=== PATIENT | female | born 1970 | race African-American/Black ===

== ENCOUNTER 2019-03-20 18:12 | Emergency (ER) | payer MEDICAID ==
[~2019-03-20] VITALS: Ht 170.2 cm; Wt 88.5 kg
[~2019-03-20 18:12] MED LIST: CYCLOBENZAPRINE10 MG ORAL; IBUPROFEN400 MG ORAL; IBUPROFEN600 MG ORAL; KEFLEX500 MG PO; PREDNISONE5 MG PO
[2019-03-20] MEDS ORDERED: NKM (18:17)
[2019-03-20] MEDS ORDERED: Aspirin Baby 81mg ORAL ONE (18:30)
[2019-03-20] MEDS ORDERED: Aspirin Baby 81mg ONE (19:01)
[2019-03-20 19:11] VITALS: BP 142/95
[2019-03-20] MEDS ORDERED: Ketorolac 60mg Inj IM ONE (19:15)
--- NOTE | 2019-03-20 19:22 | NUR ---
Patient admitted for chest pain rating it at 7/10. patient is awake and alert to name, time, place and situation, IV plced on the LEft ac with 20g.
[2019-03-20 19:28] LABS: BASOPHILS % (AUTO) 0.7 % (0.0-2.0); HEMATOCRIT 34.1 % (37.0-47.0); HEMOGLOBIN 9.7 G/DL (12.0-16.0); LYMPHOCYTES % (AUTO) 19.1 % (20.0-45.0); MEAN CORPUSCULAR VOLUME 73 FL (80-99); MONOCYTES % (AUTO) 5.9 % (1.0-10.0); NEUTROPHILS % (AUTO) 72.3 % (45.0-75.0); PLATELET COUNT 334 K/UL (150-450); RED BLOOD COUNT 4.67 M/UL (4.20-5.40); RED CELL DISTRIBUTION WIDTH 15.4 % (11.6-14.8); WHITE BLOOD COUNT 8.2 K/UL (4.8-10.8)
--- NOTE | 2019-03-20 19:33 | NUR ---
HAND-OFF: Report given to GORDO Turpin. patient remains awake and alert to name, place, time, and sitauation. reports pain of 7/10.
[2019-03-20 19:43] LABS: ANION GAP 9 mmol/L (5-15); BLOOD UREA NITROGEN 11 mg/dL (7-18); CALCIUM 9.2 MG/DL (8.5-10.1); CARBON DIOXIDE 27 MMOL/L (21-32); CHLORIDE 104 MMOL/L (98-107); CREATININE 0.7 MG/DL (0.55-1.30); POTASSIUM 3.6 MMOL/L (3.5-5.1); SODIUM 140 MMOL/L (136-145)
[2019-03-20] MEDS ORDERED: Ketorolac 30mg Inj IV ONE (20:00)
--- NOTE | 2019-03-20 20:00 | NUR ---
ED Nurse Note: Recieved report to resume care, pt in bed awake, alert and oriented x 4, pt here with c/o sudden, chest pain at 7/10, pt has patent saline lock, states has chest pain at 7/10 and asking for pain meds, pt assisted to bathroom, ambulates well with steady gait, urine sample sent to lab, pt medicated as ordered, will monitor for med effectiveness and resume care as ordered.
[2019-03-20 20:04] LABS: ALANINE AMINOTRANSFERASE 23 U/L (12-78); ALBUMIN 3.8 G/DL (3.4-5.0); ALKALINE PHOSPHATASE 67 U/L (46-116); ASPARTATE AMINO TRANSFERASE 13 U/L (15-37); BILIRUBIN,TOTAL 0.2 MG/DL (0.2-1.0); CKMB 0.6 NG/ML (0.0-3.6); CREATINE KINASE 100 U/L (26-308)
[2019-03-20 20:08] LABS: BILIRUBIN, URINE NEGATIVE (NEGATIVE); COLOR,URINE PALE YELLOW; GLUCOSE, URINE (UA) NEGATIVE (NEGATIVE); KETONES,URINE NEGATIVE (NEGATIVE); LEUKOCYTE ESTERASE ,URINE NEGATIVE (NEGATIVE); NITRITE,URINE NEGATIVE (NEGATIVE); PH,URINE 7 (4.5-8.0); PROTEIN,URINE NEGATIVE (NEGATIVE); UROBILINOGEN,URINE NORMAL MG/DL (0.0-1.0)
[2019-03-20 20:09] LABS: APPEARANCE,URINE CLEAR
[2019-03-20 20:30] VITALS: BP 134/91
--- NOTE | 2019-03-20 20:50 | Emergency Room Report ---
History of Present Illness General Chief Complaint: Chest Pain Source: Patient Present Illness HPI The patient states that she was driving and suddenly developed sharp chest pain. She states the pain is worse with movement. She states that also the pain is worse with pressure on her chest wall. She denies recent illness. She denies cough or congestion. She denies fever chills. She denies nausea or vomiting. She denies shortness of breath. She has no other complaints. Allergies: Coded Allergies: MORPHINE (Unverified Allergy, Unknown, Itching, 12/17/14) Uncoded Allergies: Tylenol with codeine (Allergy, Unknown, Itching, 12/17/14) Patient History Past Medical History: none Social History: Denies: smoking, alcohol use, drug use Reviewed Nursing Documentation: PMH: Agreed; PSxH: Agreed Nursing Documentation-PMH Past Medical History: No Stated History Review of Systems All Other Systems: negative except mentioned in HPI Physical Exam Vital Signs Date Time Temp Pulse Resp B/P (MAP) Pulse Ox O2 Delivery O2 Flow Rate FiO2 03/20/19 18:14 98.8 72 19 167/98 (121) 100 Room Air Sp02 EP Interpretation: reviewed, normal General Appearance: no apparent distress, alert, GCS 15, non-toxic Head: normocephalic, atraumatic Eyes: bilateral eye normal inspection, bilateral eye PERRL ENT: hearing grossly normal, normal pharynx, no angioedema, normal voice Neck: full range of motion, supple/symm/no masses Respiratory: lungs clear, normal breath sounds, no respiratory distress, no retraction, no accessory muscle use, speaking full sentences, other - Anterior chest wall is exquisitely TTP. Cardiovascular #1: regular rate, rhythm, no edema Gastrointestinal: normal bowel sounds, non tender, soft, non-distended, no guarding, no rebound Rectal: deferred Musculoskeletal: back normal, gait/station normal, normal range of motion, non- tender Neurologic: alert, oriented x3, responsive, motor strength/tone normal, sensory intact, speech normal Psychiatric: judgement/insight normal, memory normal, mood/affect normal, no suicidal/homicidal ideation Skin: no rash, normal color Medical Decision Making Diagnostic Impression: Primary Impression: Chest wall pain ER Course The patient is low risk chest pain. I considered PE, PTX, acute coronary syndrome, aortic dissection, pneumonia which is unlikely given hx, CE, CXR. Low risk PERC and Wells. Negative work-up to include Cardiac enzymes, CXR, EKG. Given history and PE I do not feel that this patient needs further evaluation at this time. The patient was instructed to follow-up closely with their PCP and close return precautions were given. Laboratory Tests Test 03/20/19 19:01 03/20/19 19:55 White Blood Count 8.2 K/UL (4.8-10.8) Red Blood Count 4.67 M/UL (4.20-5.40) Hemoglobin 9.7 G/DL (12.0-16.0) L Hematocrit 34.1 % (37.0-47.0) L Mean Corpuscular Volume 73 FL (80-99) L Mean Corpuscular Hemoglobin 20.9 PG (27.0-31.0) L Mean Corpuscular Hemoglobin Concent 28.6 G/DL (32.0-36.0) L Red Cell Distribution Width 15.4 % (11.6-14.8) H Platelet Count 334 K/UL (150-450) Mean Platelet Volume 8.8 FL (6.5-10.1) Neutrophils (%) (Auto) 72.3 % (45.0-75.0) Lymphocytes (%) (Auto) 19.1 % (20.0-45.0) L Monocytes (%) (Auto) 5.9 % (1.0-10.0) Eosinophils (%) (Auto) 2.0 % (0.0-3.0) Basophils (%) (Auto) 0.7 % (0.0-2.0) Sodium Level 140 MMOL/L (136-145) Potassium Level 3.6 MMOL/L (3.5-5.1) Chloride Level 104 MMOL/L (98-107) Carbon Dioxide Level 27 MMOL/L (21-32) Anion Gap 9 mmol/L (5-15) Blood Urea Nitrogen 11 mg/dL (7-18) Creatinine 0.7 MG/DL (0.55-1.30) Estimate Glomerular Filtration Rate > 60 mL/min (>60) Glucose Level 112 MG/DL (74-106) H Calcium Level 9.2 MG/DL (8.5-10.1) Total Bilirubin 0.2 MG/DL (0.2-1.0) Aspartate Amino Transferase (AST) 13 U/L (15-37) L Alanine Aminotransferase (ALT) 23 U/L (12-78) Alkaline Phosphatase 67 U/L (46-116) Total Creatine Kinase 100 U/L (26-308) Creatine Kinase MB 0.6 NG/ML (0.0-3.6) Creatine Kinase MB Relative Index 0.6 Troponin I 0.000 ng/mL (0.000-0.056) Total Protein 7.6 G/DL (6.4-8.2) Albumin 3.8 G/DL (3.4-5.0) Globulin 3.8 g/dL Albumin/Globulin Ratio 1.0 (1.0-2.7) Urine Color Pale yellow Urine Appearance Clear Urine pH 7 (4.5-8.0) Urine Specific [place] 1.010 (1.005-1.035) Urine Protein Negative (NEGATIVE) Urine Glucose (UA) Negative (NEGATIVE) Urine Ketones Negative (NEGATIVE) Urine Blood Negative (NEGATIVE) Urine Nitrite Negative (NEGATIVE) Urine Bilirubin Negative (NEGATIVE) Urine Urobilinogen Normal MG/DL (0.0-1.0) Urine Leukocyte Esterase Negative (NEGATIVE) Urine Opiates Screen Negative (NEGATIVE) Urine Barbiturates Screen Negative (NEGATIVE) Phencyclidine (PCP) Screen Negative (NEGATIVE) Urine Amphetamines Screen Negative (NEGATIVE) Urine Benzodiazepines Screen Negative (NEGATIVE) Urine Cocaine Screen Negative (NEGATIVE) Urine Marijuana (THC) Screen Negative (NEGATIVE) EKG Diagnostic Results Rate: normal Rhythm: NSR ST Segments: no acute changes Rhythm Strip Diag. Results EP Interpretation: yes Rate: 70's Rhythm: NSR, no PVC's, no ectopy Chest X-Ray Diagnostic Results Chest X-Ray Diagnostic Results : Chest X-Ray Ordered: Yes # of Views/Limited/Complete: 1 View Indication: Chest Pain EP Interpretation: Yes Interpretation: no consolidation, no effusion, no pneumothorax, no acute cardiopulmonary disease Impression: No acute disease Electronically Signed by: Mellisa Denton DO Last Vital Signs Date Time Temp Pulse Resp B/P (MAP) Pulse Ox O2 Delivery O2 Flow Rate FiO2 03/20/19 19:21 72 17 Room Air 03/20/19 19:11 98.5 142/95 100 Status: improved Disposition: HOME, SELF-CARE Condition: Improved Patient Instructions: Nonspecific Chest Pain Mellisa Denton DO Mar 20, 2019 20:50
[2019-03-20] MEDS ORDERED: CYCLOBENZAPRINE10 MG ORAL (20:56)
[2019-03-20] MEDS ORDERED: ACETAMINOPHEN-1 EAC1 ORAL (20:56)
[2019-03-20 21:00] VITALS: BP 128/84
--- NOTE | 2019-03-20 21:10 | NUR ---
ER DISCHARGE NOTE: Patient is cleared to be discharged per ERMD, pt is aox4, on room air, with stable vital signs. pt was given dc and prescription instructions, pt was able to verbalize understanding, pt id band and iv site removed without complications. pt is able to ambulate with steady gait. pt took all belongings.
[2019-03-20 21:21] VITALS: BP 128/84
--- NOTE | 2019-03-21 11:50 | Diagnostic Imaging Report ---
Indication: Dyspnea Comparison: 12/17/2014 A single view chest radiograph was obtained. Findings: Cardiomediastinal appearance is within normal limits for age. The lungs are clear. Pulmonary vascularity is appropriate. The diaphragmatic contour is smooth and costophrenic angles are sharp. No pleural effusions are identified. The bones are unremarkable. Impression: No acute findings
--- NOTE | 2019-04-02 16:03 | Cardiology Report ---
APPROVED REPORT EKG Measurement Heart [id number] Normal sinus rhythm with sinus arrhythmia Normal ECG
== END 2019-03-20 21:20 | disposition home or self-care (01) ==
LOC: EMR 20:45
DX: R07.89 Other chest pain (principal); Z88.6 Allergy status to analgesic agent
CPT/HCPCS: 36415; 71045; 80053; 80307; 81003; 82550; 82553; 84484; 85025; 93005; 96361; 96372; 96374; J1885; Z7502; 99284

== ENCOUNTER 2019-11-30 17:26 | Emergency (ER) | payer MEDICAID ==
[~2019-11-30] VITALS: Ht 170.2 cm; Wt 90.7 kg
[~2019-11-30 17:26] MED LIST changes: +ACETAMINOPHEN-1 EAC1 ORAL; +NKM
--- NOTE | 2019-11-30 17:50 | NUR ---
ED Nurse Note: Pt walked in from home c/o left lower abd tingling feeling that radiates to left lower back. Pt describes it as "needles sticking her skin." Respirations even and unlabored on room air. Vitals stable as documented.
[2019-11-30 17:51] VITALS: BP 144/81
--- NOTE | 2019-11-30 18:18 | NUR ---
ED Nurse Note: ED MD @ bedside
--- NOTE | 2019-11-30 18:22 | Emergency Room Report ---
History of Present Illness General Chief Complaint: General Complaint Source: Patient Present Illness HPI Patient presents with 3 days of left flank pain that feels like pins coming from her back and radiating to her left lower quadrant. She denies any nausea, vomiting, diarrhea, dysuria change in menstruation, fevers, chills. She has been taking Aleve. She also took Flexeril that did not seem to help. She denies any unusual workout or stretching. The pain does not radiated down her left leg. She states she has never had this type of pain before she is not noticed any rashes. No fevers, chills, sore throat, chest pain, palpitations, nausea, vomiting, diarrhea, dysuria, shortness of breath, depression, anxiety, visual changes, dizziness, headache. Allergies: Coded Allergies: MORPHINE (Unverified Allergy, Unknown, Itching, 12/17/14) Uncoded Allergies: Tylenol with codeine (Allergy, Unknown, Itching, 12/17/14) COVID-19 Screening Contact w/high risk pt: No Recent Travel to affected area: No Experienced COVID-19 symptoms?: No COVID-19 Testing performed DERRICK BOAT LEVERMAN: No Patient History Past Medical History: see triage record Past Surgical History: Social History: Denies: smoking Social History Narrative From home Now: No Reviewed Nursing Documentation: PMH: Agreed; PSxH: Agreed Nursing Documentation-PMH Past Medical History: No History, Except For Review of Systems All Other Systems: negative except mentioned in HPI Physical Exam Vital Signs Date Time Temp Pulse Resp B/P (MAP) Pulse Ox O2 Delivery O2 Flow Rate FiO2 11/30/19 17:33 99.1 90 16 148/87 (107) 98 Room Air Sp02 EP Interpretation: reviewed, normal General Appearance: well appearing, no apparent distress - But in pain, GCS 15 , non-toxic Head: normocephalic Eyes: bilateral eye normal inspection, bilateral eye PERRL, bilateral eye EOMI ENT: moist mucus membranes Neck: supple Respiratory: chest non-tender, lungs clear, normal breath sounds Cardiovascular #1: regular rate, rhythm Cardiovascular #2: 2+ radial (R) Gastrointestinal: normal inspection, normal bowel sounds, non tender, no mass, non-distended Musculoskeletal: normal range of motion, gait/station normal, other - Straight leg raise bilaterally negative. Some paraspinous muscle spasm and tenderness on the left-hand side. No bony tenderness. Neurologic: alert, motor strength/tone normal, DTRs symmetric, oriented x3, sensory intact Psychiatric: mood/affect normal Skin: no rash, warm/dry, other - No vesicular rash Medical Decision Making Diagnostic Impression: Primary Impression: Flank pain ER Course Patient presents with flank pain radiating down to her left lower quadrant. Differential includes renal stone, pyelonephritis, diverticulitis, lumbar strain , muscle spasm, shingles amongst others. Evaluation with labs and abdominal film. Patient will be treated with IV hydration and a dose of IV ketorolac she drove herself here. Risk factors for aortic aneurysm low and history is against this. Abdomen is soft and doubt surgical etiology. White count normal. Electrolytes unremarkable. Abdominal film with normal bony structures and also some increased stool load. Urinalysis 10-15 red cells , 0-2 white cells. Patient slightly improved with treatment however still with pain. Ketorolac repeated and tramadol administered. Patient resting comfortably but still complains about pain but it is markedly improved. Discussed that inability to nail down a definitive diagnosis. Discussed outpatient observation and treatment plan. No apparent medical emergency at this time. Patient stable for outpatient observation and treatment. Laboratory Tests Test 11/30/19 17:49 11/30/19 18:33 Urine Color Pale yellow Urine Appearance Slightly cloudy Urine pH 6 (4.5-8.0) Urine Specific [place] 1.020 (1.005-1.035) Urine Protein 1+ (NEGATIVE) H Urine Glucose (UA) Negative (NEGATIVE) Urine Ketones Negative (NEGATIVE) Urine Blood 2+ (NEGATIVE) H Urine Nitrite Negative (NEGATIVE) Urine Bilirubin Negative (NEGATIVE) Urine Urobilinogen Normal MG/DL (0.0-1.0) Urine Leukocyte Esterase Negative (NEGATIVE) Urine RBC 10-15 /HPF (0 - 2) H Urine WBC 0-2 /HPF (0 - 2) Urine Squamous Epithelial Cells Moderate /LPF (NONE/OCC) H Urine Amorphous Sediment Few /LPF (NONE) H Urine Bacteria Few /HPF (NONE) Urine HCG, Qualitative Negative (NEGATIVE) White Blood Count 6.6 K/UL (4.8-10.8) Red Blood Count 4.95 M/UL (4.20-5.40) Hemoglobin 11.7 G/DL (12.0-16.0) L Hematocrit 39.9 % (37.0-47.0) Mean Corpuscular Volume 81 FL (80-99) Mean Corpuscular Hemoglobin 23.5 PG (27.0-31.0) L Mean Corpuscular Hemoglobin Concent 29.2 G/DL (32.0-36.0) L Red Cell Distribution Width 21.1 % (11.6-14.8) H Platelet Count 290 K/UL (150-450) Mean Platelet Volume 9.3 FL (6.5-10.1) Neutrophils (%) (Auto) 60.3 % (45.0-75.0) Lymphocytes (%) (Auto) 28.7 % (20.0-45.0) Monocytes (%) (Auto) 7.2 % (1.0-10.0) Eosinophils (%) (Auto) 2.7 % (0.0-3.0) Basophils (%) (Auto) 1.1 % (0.0-2.0) Sodium Level 139 MMOL/L (136-145) Potassium Level 3.8 MMOL/L (3.5-5.1) Chloride Level 102 MMOL/L (98-107) Carbon Dioxide Level 28 MMOL/L (21-32) Anion Gap 9 mmol/L (5-15) Blood Urea Nitrogen 11 mg/dL (7-18) Creatinine 0.9 MG/DL (0.55-1.30) Estimated Glomerular Filtration Rate > 60 mL/min (>60) Glucose Level 158 MG/DL (74-106) H Calcium Level 8.7 MG/DL (8.5-10.1) Total Bilirubin 0.3 MG/DL (0.2-1.0) Aspartate Amino Transferase (AST) 13 U/L (15-37) L Alanine Aminotransferase (ALT) 22 U/L (12-78) Alkaline Phosphatase 66 U/L (46-116) Total Protein 7.4 G/DL (6.4-8.2) Albumin 3.7 G/DL (3.4-5.0) Globulin 3.7 g/dL Albumin/Globulin Ratio 1.0 (1.0-2.7) Lipase 188 U/L (73-393) Other X-Ray Diagnostic Results Other X-Ray Diagnostic Results : X-Ray ordered: Abdomen # of Views/Limited Vs Complete: 1 View Indication: Pain EP Interpretation: Yes Interpretation: nonspecific bowel gas, no sbo, other - Increased stool load Impression: Other Electronically Signed by: Electronically signed by Romario Covarrubias MD Last Vital Signs Date Time Temp Pulse Resp B/P (MAP) Pulse Ox O2 Delivery O2 Flow Rate FiO2 11/30/19 21:01 99.0 11/30/19 20:00 82 18 138/78 97 Room Air Status: improved Disposition: HOME, SELF-CARE Condition: Improved Scripts Lidocaine Patch* (Lidoderm Patch*) 1 Each Adh..patch 1 PATCH TOPIC DAILY, #7 PATCH 0 Refills Patch(es) may remain in place for up to 12 hours in any 24-hour period. Prov: Romario Covarrubias MD 11/30/19 Ibuprofen* (MOTRIN*) 600 Mg Tablet 600 MG ORAL Q6H PRN for FOR PAIN, #16 TAB 0 Refills Prov: Romario Covarrubias MD 11/30/19 Tramadol Hcl* (ULTRAM*) 50 Mg Tablet 50 MG ORAL Q6H PRN for For Pain, #10 TAB 0 Refills Prov: Romario Covarrubias MD 11/30/19 Romario Covarrubias MD Nov 30, 2019 18:22
[2019-11-30] MEDS ORDERED: Ketorolac 30mg Inj IV ONE ×2 (18:30→20:30)
[2019-11-30 18:54] LABS: APPEARANCE,URINE SLIGHTLY CLOUDY; BILIRUBIN, URINE NEGATIVE (NEGATIVE); COLOR,URINE PALE YELLOW; GLUCOSE, URINE (UA) NEGATIVE (NEGATIVE); KETONES,URINE NEGATIVE (NEGATIVE); LEUKOCYTE ESTERASE ,URINE NEGATIVE (NEGATIVE); NITRITE,URINE NEGATIVE (NEGATIVE); PH,URINE 6 (4.5-8.0); PROTEIN,URINE 1+ (NEGATIVE); UROBILINOGEN,URINE NORMAL MG/DL (0.0-1.0)
[2019-11-30 19:04] LABS: BASOPHILS % (AUTO) 1.1 % (0.0-2.0); EOSINOPHILS % (AUTO) 2.7 % (0.0-3.0); HEMATOCRIT 39.9 % (37.0-47.0); HEMOGLOBIN 11.7 G/DL (12.0-16.0); LYMPHOCYTES % (AUTO) 28.7 % (20.0-45.0); MEAN CORPUSCULAR VOLUME 81 FL (80-99); MONOCYTES % (AUTO) 7.2 % (1.0-10.0); NEUTROPHILS % (AUTO) 60.3 % (45.0-75.0); PLATELET COUNT 290 K/UL (150-450); RED BLOOD COUNT 4.95 M/UL (4.20-5.40); RED CELL DISTRIBUTION WIDTH 21.1 % (11.6-14.8); WHITE BLOOD COUNT 6.6 K/UL (4.8-10.8)
--- NOTE | 2019-11-30 19:05 | NUR ---
HAND-OFF: Report given to GORDO Haynes. Pt in stable condition; plan of care endorsed.
--- NOTE | 2019-11-30 19:05 | NUR ---
ED Nurse Note: Report received for Sally Ferreira RN
[2019-11-30 19:10] LABS: ANION GAP 9 mmol/L (5-15); BLOOD UREA NITROGEN 11 mg/dL (7-18); CALCIUM 8.7 MG/DL (8.5-10.1); CARBON DIOXIDE 28 MMOL/L (21-32); CHLORIDE 102 MMOL/L (98-107); CREATININE 0.9 MG/DL (0.55-1.30); POTASSIUM 3.8 MMOL/L (3.5-5.1); SODIUM 139 MMOL/L (136-145)
[2019-11-30 19:13] LABS: ALANINE AMINOTRANSFERASE 22 U/L (12-78); ALBUMIN 3.7 G/DL (3.4-5.0); ALKALINE PHOSPHATASE 66 U/L (46-116); ASPARTATE AMINO TRANSFERASE 13 U/L (15-37); BILIRUBIN,TOTAL 0.3 MG/DL (0.2-1.0)
[2019-11-30 20:00] VITALS: BP 138/78
[2019-11-30] MEDS ORDERED: traMADol 50mg tab ORAL ONE (20:30)
--- NOTE | 2019-11-30 20:37 | NUR ---
ED Nurse Note: Patient still complaints of pain at abdominal area (tingling), Pain scale 6-7/10. ERMD notified. Pain meds given.
--- NOTE | 2019-11-30 21:02 | Diagnostic Imaging Report ---
EXAM: XR Abdomen, one view CLINICAL HISTORY: ABD PAIN TECHNIQUE: Frontal supine view of the abdomen/pelvis. COMPARISON: None. FINDINGS: Intraperitoneal space: No obvious mass or pathologic calcification. Gastrointestinal tract: Moderate amount of well-formed stool. No dilation. Bones/joints: Unremarkable. IMPRESSION: Mild colonic stool burden with nonobstructive bowel gas pattern.
[2019-11-30] MEDS ORDERED: TRAMADOL HCL50 MG ORAL (22:18)
[2019-11-30] MEDS ORDERED: LIDODERM700 M1 TOPIC (22:18)
[2019-11-30] MEDS ORDERED: IBUPROFEN600 M1 ORAL (22:18)
== END 2019-11-30 22:33 | disposition home or self-care (01) ==
LOC: EMR 18:23
DX: R10.32 Left lower quadrant pain (principal); Z88.6 Allergy status to analgesic agent; M62.830 Muscle spasm of back
CPT/HCPCS: 36415; 74018; 80053; 81003; 81025; 83690; 85025; 96361; 96374; 96376; J1885; J7030; Z7502; 99284

== ENCOUNTER 2020-07-16 09:05 | Emergency (ER) | payer MEDICAID ==
[~2020-07-16] VITALS: Ht 170.2 cm; Wt 90.7 kg
[~2020-07-16 09:05] MED LIST changes: +IBUPROFEN600 M1 ORAL; +LIDODERM700 M1 TOPIC; +TRAMADOL HCL50 MG ORAL
--- NOTE | 2020-07-16 09:22 | Emergency Room Report ---
History of Present Illness General Chief Complaint: Chest Pain Source: Patient Present Illness HPI Disclaimer: Please note that this report is being documented using [employer] technology. This can lead to erroneous entry secondary to incorrect interpretation by the dictating instrument. HPI: 49-year-old female presents for evaluation of chest pain. Symptoms occurred last night and early this morning upon waking. She reports a tight burning sensation in the mid chest that does not radiate. Associated with increased belching and some indigestion. Reports intermittent shortness of breath when the pain was there but now resolved. No prior episodes of similar chest pain. Patient ate chicken wings and spicy sauce last night prior to bed. Has had some problems with acid reflux in the past but is not medicated. Pain is now resolving. Denies exertional dyspnea of late. She also takes NSAIDs regularly for treatment of hip arthritis. Non-smoker. History of hypercholesterolemia. Denies recent travel, lower extremity swelling, cough, fever, chills, sore throat, nasal congestion, diarrhea, vomiting or other symptoms. PMH: Hypercholesterolemia, obesity PSH: Reviewed Allergies: Morphine Social Hx: Non-smoker Allergies: Coded Allergies: MORPHINE (Unverified Allergy, Unknown, Itching, 12/17/14) Uncoded Allergies: Tylenol with codeine (Allergy, Unknown, Itching, 12/17/14) COVID-19 Screening Contact w/high risk pt: No Recent Travel to affected area: No Experienced COVID-19 symptoms?: No COVID-19 Testing performed CLAIM REPRESENTATIVE: No COVID-19 Screening: Negative COVID-19 COVID-19 Testing Source: positive in March, then negative in March Nursing Documentation-PMH Past Medical History: No History, Except For Review of Systems All Other Systems: negative except mentioned in HPI Physical Exam Vital Signs Date Time Temp Pulse Resp B/P (MAP) Pulse Ox O2 Delivery O2 Flow Rate FiO2 07/16/20 09:16 98.2 90 19 168/105 (126) 99 Room Air General: Awake and alert, no acute distress HEENT: NC/AT. EOMI. Cardiovascular: RRR. S1 and S2 normal. No murmur appreciated Resp: Normal work of breathing. No cough, wheezing or crackles appreciated Abdomen: Abdomen is soft, nondistended. Nontender Skin: Intact. No abrasions, laceration or rash over the exposed skin MSK: Normal tone and bulk. Moving all extremities. No obvious deformity. Neuro: Awake and alert. Mentating appropriately. Procedures Critical Care Time Critical Care Time Total critical care time: Approximately 45 minutes Due to a high probability of clinically significant, life threatening deterioration, the patient required the highest level of preparedness to intervene emergently and I personally spent this critical care time directly and personally managing the patient. This critical care time included obtaining a history, examining the patient, pulse oximetry, ordering and reviewing studies, ordering treatments, evaluating response to treatment and updating management plan as needed, frequent reassessment and discussion with other providers as well as arranging for ultimate disposition. This critical to care time was performed to assess and manage the high probability of life-threatening deterioration that could result in multiorgan failure. This critical care time is separate from the separately billable procedures and treating other patients. Medical Decision Making Diagnostic Impression: Primary Impression: ACS (acute coronary syndrome) Additional Impression: Chest pain ER Course Is a 49-year-old female presenting for evaluation of chest discomfort. Differential includes not limited to gastritis, gastroenteritis, ACS, arrhythmia, palpitations, pneumonia, bronchitis, GERD, esophagitis, pneumothorax among others. EKG shows sinus rhythm without ST segment changes though there are T wave inversions in the precordial leads as well as a somewhat biphasic appearing V2 and V3 on initial EKG. Labs show an elevated troponin. Patient given full dose aspirin. Her symptoms improved after receiving a GI cocktail but she now states she has had intermittent chest pain for the past few days and has experienced it in the past but has not sought medical evaluation. Heart sco re is high. Discussed with Dr. Verma at [facility] over concern of possible Wellens syndrome given patient's EKG. Cardiology service has accepted the patient for further work-up possibly including cardiac catheterization. Heparin bolus given. We will hold off on Plavix as cardiology team may prefer ticagrelor prior to cath. Will arrange for urgent transport. Patient remains chest pain-free and is stable for transfer at this time. She agrees with this treatment plan. Heart score: History: 1 EC Age: 1 Risk factors: 1 Initial troponin: 2 Total: 7 Laboratory Tests Test 07/16/20 09:25 White Blood Count 7.5 K/UL (4.8-10.8) Red Blood Count 5.19 M/UL (4.20-5.40) Hemoglobin 14.8 G/DL (12.0-16.0) Hematocrit 46.5 % (37.0-47.0) Mean Corpuscular Volume 90 FL (80-99) Mean Corpuscular Hemoglobin 28.5 PG (27.0-31.0) Mean Corpuscular Hemoglobin Concent 31.7 G/DL (32.0-36.0) L Red Cell Distribution Width 13.6 % (11.6-14.8) Platelet Count 221 K/UL (150-450) Mean Platelet Volume 10.3 FL (6.5-10.1) H Neutrophils (%) (Auto) 72.7 % (45.0-75.0) Lymphocytes (%) (Auto) 20.0 % (20.0-45.0) Monocytes (%) (Auto) 4.8 % (1.0-10.0) Eosinophils (%) (Auto) 1.7 % (0.0-3.0) Basophils (%) (Auto) 0.8 % (0.0-2.0) Sodium Level 138 MMOL/L (136-145) Potassium Level 3.9 MMOL/L (3.5-5.1) Chloride Level 101 MMOL/L (98-107) Carbon Dioxide Level 27 MMOL/L (21-32) Anion Gap 10 mmol/L (5-15) Blood Urea Nitrogen 15 mg/dL (7-18) Creatinine 0.8 MG/DL (0.55-1.30) Estimated Glomerular Filtration Rate > 60 mL/min (>60) Glucose Level 232 MG/DL (74-106) H Calcium Level 9.1 MG/DL (8.5-10.1) Total Bilirubin 0.3 MG/DL (0.2-1.0) Aspartate Amino Transferase (AST) 24 U/L (15-37) Alanine Aminotransferase (ALT) 57 U/L (12-78) Alkaline Phosphatase 97 U/L (46-116) Troponin I 0.288 ng/mL (0.000-0.056) Pro-B-Type Natriuretic Peptide 42 pg/mL (0-125) Total Protein 8.1 G/DL (6.4-8.2) Albumin 3.8 G/DL (3.4-5.0) Globulin 4.3 g/dL Albumin/Globulin Ratio 0.9 (1.0-2.7) L EKG Diagnostic Results Troponin ordered: Yes When was troponin ordered?: Jul 16, 2020 EKG Time: 09:12 Rate: normal Rhythm: NSR ST Segments: no acute changes Other Impression Sinus rhythm, normal axis, normal intervals, no ST segment changes. T wave inversions in precordial leads. Somewhat biphasic V2 and V3 Rhythm Strip Diag. Results Rhythm Strip Time: 09:12 EP Interpretation: yes Rate: 80s Rhythm: NSR, no PVC's, no ectopy Chest X-Ray Diagnostic Results Chest X-Ray Diagnostic Results : Chest X-Ray Ordered: Yes # of Views/Limited/Complete: 1 View Indication: Chest Pain EP Interpretation: Yes Interpretation: no consolidation, no effusion, no pneumothorax, no acute cardiopulmonary disease Impression: No acute disease Electronically Signed by: Electronically signed by Dr. Van Haynes MD Last Vital Signs Date Time Temp Pulse Resp B/P (MAP) Pulse Ox O2 Delivery O2 Flow Rate FiO2 07/16/20 09:16 98.2 90 19 168/105 (126) 99 Room Air Disposition: SHORT-TERM HOSP Condition: Stable Scripts Famotidine* (Pepcid 20mg tablet*) 20 Mg Tablet 20 MG ORAL DAILY for Gerd, #30 TAB 0 Refills Prov: Van Haynes MD 07/16/20 Van Haynes MD Jul 16, 2020 09:22
[2020-07-16] MEDS ORDERED: Dicyclomine HCl 10mg/5ml oral soln ORAL ONE (09:30)
[2020-07-16] MEDS ORDERED: Lidocaine 2% Visc 15ml soln ORAL ONE (09:30)
[2020-07-16] MEDS ORDERED: Mylanta II UD 30ml ORAL ONE (09:30)
--- NOTE | 2020-07-16 09:30 | NUR ---
Received patient from home stating that she had chest burning and indigestion last night after she ate some chicken but it quckly went away. She reported that chest pain woke her up this morning at approx. 6am. She reported that she experienced burning, felt nausea and spat up clear fluid. She stated that she has been to the hospital 10 times for this same problem but needed to have it checked out today. 20G IV started to LAC. Tolerated well. IV bolus initiated and is tolerable. All ordered medication given and tolerated well. No significant medical history. Takes Ibuprofen for the occasional lower back pain and most recently had a tooth extraction and took Wayne. No hx of surgeries. Is up to date with immunization. Blood pressure remained slightly elevated during stay: 10:30 148/91 11:00 155/103 11:30 146/127 12:00 141/119 12:30 148/86 Reports no hx of HTN or DM. Labs showed elevated BS of 252. Referred to [facility] ER for evaluation of possible STEMI
[2020-07-16] MEDS ORDERED: FAMOTIDINE20 MG ORAL (09:51)
[2020-07-16 09:53] LABS: BASOPHILS % (AUTO) 0.8 % (0.0-2.0); EOSINOPHILS % (AUTO) 1.7 % (0.0-3.0); HEMATOCRIT 46.5 % (37.0-47.0); HEMOGLOBIN 14.8 G/DL (12.0-16.0); MEAN CORPUSCULAR VOLUME 90 FL (80-99); MONOCYTES % (AUTO) 4.8 % (1.0-10.0); NEUTROPHILS % (AUTO) 72.7 % (45.0-75.0); PLATELET COUNT 221 K/UL (150-450); RED BLOOD COUNT 5.19 M/UL (4.20-5.40); RED CELL DISTRIBUTION WIDTH 13.6 % (11.6-14.8); WHITE BLOOD COUNT 7.5 K/UL (4.8-10.8)
[2020-07-16 09:59] VITALS: BP 149/101
[2020-07-16 10:12] LABS: ANION GAP 10 mmol/L (5-15); BLOOD UREA NITROGEN 15 mg/dL (7-18); CALCIUM 9.1 MG/DL (8.5-10.1); CARBON DIOXIDE 27 MMOL/L (21-32); CHLORIDE 101 MMOL/L (98-107); CREATININE 0.8 MG/DL (0.55-1.30); POTASSIUM 3.9 MMOL/L (3.5-5.1); SODIUM 138 MMOL/L (136-145)
[2020-07-16 10:23] LABS: ALANINE AMINOTRANSFERASE 57 U/L (12-78); ALBUMIN 3.8 G/DL (3.4-5.0); ALBUMIN/GLOBULIN RATIO 0.9 (1.0-2.7); ALKALINE PHOSPHATASE 97 U/L (46-116); ASPARTATE AMINO TRANSFERASE 24 U/L (15-37); BILIRUBIN,TOTAL 0.3 MG/DL (0.2-1.0)
[2020-07-16] MEDS ORDERED: Heparin 5000 units/ml inj SUBQ ONE (12:30)
[2020-07-16] MEDS ORDERED: Heparin 1000 units/ml 1ml Vial INJ ONE (12:30)
[2020-07-16] MEDS ORDERED: Heparin 5000 units/ml inj ONE (12:35)
--- NOTE | 2020-07-16 12:43 | NUR ---
ED Nurse Note: Report given to Jared CARO.
[2020-07-16] MEDS ORDERED: Heparin Sod 1000 units/ml 10ml INJ ONE (12:45)
[2020-07-16] MEDS ORDERED: Heparin 5000 units/ml inj IV ONE (12:45)
[2020-07-16 12:58] VITALS: BP 148/86
--- NOTE | 2020-07-16 13:47 | Diagnostic Imaging Report ---
Procedure: XRAY Chest 1v Reason for study: Chest pain Comparison films: 03/20/2019. FINDINGS: A single one view chest is obtained. Vascularity is normal. The lung pandey are clear bilaterally. Cardiac and mediastinal silhouette are within normal limits. CP angles are sharp. The bony thorax appear unremarkable. IMPRESSION: NO ACUTE CARDIOPULMONARY DISEASE.
== END 2020-07-16 12:40 | disposition short-term general hospital (02) ==
LOC: EMR 09:59
DX: I24.9 Acute ischemic heart disease, unspecified (principal); R07.9 Chest pain, unspecified; E78.00 Pure hypercholesterolemia, unspecified; E66.9 Obesity, unspecified; M16.10 Unilateral primary osteoarthritis, unspecified hip; Z68.31 Body mass index [BMI] 31.0-31.9, adult; Z88.5 Allergy status to narcotic agent; Z88.6 Allergy status to analgesic agent
CPT/HCPCS: 36415; 71045; 80053; 83880; 84484; 85025; 93005; 96361; 96374; J1644; J7030; Z7502; 99291

== ENCOUNTER 2020-08-22 09:11 | Emergency (ER) | payer MEDICAID ==
[~2020-08-22] VITALS: Ht 165.1 cm; Wt 86.2 kg
[~2020-08-22 09:11] MED LIST changes: +FAMOTIDINE20 MG ORAL
--- NOTE | 2020-08-22 09:46 | Emergency Room Report ---
History of Present Illness General Chief Complaint: sob Source: Patient Present Illness HPI Patient is a 49-year-old female past medical history of NC status post stent placement x1 6 weeks ago, hypertension and hyperlipidemia who presents to the ER complaining of shortness of breath. Patient states that she woke up this morning she is feeling "weird". She states that she is having difficulty breathing but denies any chest pain. She also states that she feels dizzy like a disequilibrium not a vertiginous feeling. Patient also complains of hot flashes but states that she is perimenopausal. Patient is on aspirin and Plavix. She denies any lower extremity pain or edema. She denies any cough. She denies any abdominal pain nausea or vomiting. She states that this is not the symptoms that she had when she had her NC previously. Allergies: Coded Allergies: MORPHINE (Unverified Allergy, Unknown, Itching, 12/17/14) Uncoded Allergies: Tylenol with codeine (Allergy, Unknown, Itching, 12/17/14) COVID-19 Screening Contact w/high risk pt: No Recent Travel to affected area: No Experienced COVID-19 symptoms?: No Patient History Reviewed Nursing Documentation: PMH: Agreed; PSxH: Agreed Review of Systems All Other Systems: negative except mentioned in HPI Physical Exam Sp02 EP Interpretation: reviewed, normal General Appearance: no apparent distress, alert, GCS 15, non-toxic Head: normocephalic, atraumatic Eyes: bilateral eye normal inspection, bilateral eye PERRL ENT: hearing grossly normal, normal pharynx, no angioedema, normal voice Neck: full range of motion, supple/symm/no masses Respiratory: chest non-tender, lungs clear, normal breath sounds, speaking full sentences Cardiovascular #1: regular rate, rhythm, no edema Gastrointestinal: normal bowel sounds, non tender, soft, non-distended, no guarding, no rebound Rectal: deferred Genitourinary: normal inspection, no CVA tenderness Musculoskeletal: no calf tenderness, no lower extremity edema Neurologic: squirrel man III-XII nml as tested, oriented x3 Psychiatric: no suicidal/homicidal ideation Skin: no rash Lymphatic: no adenopathy Medical Decision Making Diagnostic Impression: Primary Impression: ACS (acute coronary syndrome) Additional Impression: Dyspnea ER Course Patient's ER work-up demonstrate no significant acute abnormalities. Her diastolic blood pressure has been elevated but systolic blood pressure has been normal. Patient given aspirin. D-dimer is negative. VSS. Patient's troponin is negative x1. EKG demonstrates no ST elevation. Chest x-ray demonstrates no acute cardiopulmonary pathology. Patient will will be transferred to [facility] for further treatment and evaluation. Laboratory Tests Test 08/22/20 06:44 White Blood Count 6.9 K/UL (4.8-10.8) Red Blood Count 4.91 M/UL (4.20-5.40) Hemoglobin 14.4 G/DL (12.0-16.0) Hematocrit 44.0 % (37.0-47.0) Mean Corpuscular Volume 90 FL (80-99) Mean Corpuscular Hemoglobin 29.2 PG (27.0-31.0) Mean Corpuscular Hemoglobin Concent 32.6 G/DL (32.0-36.0) Red Cell Distribution Width 13.3 % (11.6-14.8) Platelet Count 241 K/UL (150-450) Mean Platelet Volume 10.3 FL (6.5-10.1) H Neutrophils (%) (Auto) 67.8 % (45.0-75.0) Lymphocytes (%) (Auto) 22.9 % (20.0-45.0) Monocytes (%) (Auto) 6.5 % (1.0-10.0) Eosinophils (%) (Auto) 2.2 % (0.0-3.0) Basophils (%) (Auto) 0.6 % (0.0-2.0) Prothrombin Time 10.2 SEC (9.30-11.50) Prothrombin Time INR 0.9 (0.9-1.1) Activated Partial Thromboplast Time 22 SEC (23-33) L D-Dimer 0.20 mg/L FEU (0.00-0.49) Sodium Level 144 MMOL/L (136-145) Potassium Level 3.9 MMOL/L (3.5-5.1) Chloride Level 106 MMOL/L (98-107) Carbon Dioxide Level 28 MMOL/L (21-32) Anion Gap 10 mmol/L (5-15) Blood Urea Nitrogen 13 mg/dL (7-18) Creatinine 0.7 MG/DL (0.55-1.30) Estimated Glomerular Filtration Rate > 60 mL/min (>60) Glucose Level 201 MG/DL (74-106) H Calcium Level 9.3 MG/DL (8.5-10.1) Magnesium Level 1.8 MG/DL (1.8-2.4) Total Bilirubin 0.4 MG/DL (0.2-1.0) Aspartate Amino Transferase (AST) 19 U/L (15-37) Alanine Aminotransferase (ALT) 46 U/L (12-78) Alkaline Phosphatase 133 U/L (46-116) H Troponin I 0.000 ng/mL (0.000-0.056) Pro-B-Type Natriuretic Peptide 52 pg/mL (0-125) Total Protein 8.2 G/DL (6.4-8.2) Albumin 4.2 G/DL (3.4-5.0) Globulin 4.0 g/dL Albumin/Globulin Ratio 1.0 (1.0-2.7) Thyroid Stimulating Hormone (TSH) 2.760 uiU/mL (0.358-3.740) Free Thyroxine 0.97 NG/DL (0.76-1.46) EKG Diagnostic Results Troponin ordered: Yes When was troponin ordered?: Aug 22, 2020 EKG Time: 09:42 EP Interpretation: Sarah Caputo MD Rate: normal - 71 bpm Rhythm: NSR ST Segments: no acute changes ASA given to the pt in ED: Yes Rhythm Strip Diag. Results Rhythm Strip Time: 09:46 EP Interpretation: yes - Sarah Caputo MD Rate: 76 bpm Rhythm: NSR, no PVC's, no ectopy Chest X-Ray Diagnostic Results Chest X-Ray Diagnostic Results : Chest X-Ray Ordered: Yes # of Views/Limited/Complete: 1 View Indication: Shortness of Breath EP Interpretation: Yes Interpretation: no consolidation, no effusion, no pneumothorax, no acute cardiopulmonary disease Impression: No acute disease Electronically Signed by: Sarah Caputo MD Disposition: ADMITTED INPATIENT - [facility] Condition: Critical Physician Consult: Dr. Dorsey Referrals: [facility],REFERRING (PCP) Additional Instructions: Please note that this report is being documented using [employer] technology. This can lead to erroneous entry secondary to incorrect interpretation by the dictating instrument. Sarah Caputo M.D. Aug 22, 2020 09:46
[2020-08-22 09:49] VITALS: BP 144/86
--- NOTE | 2020-08-22 09:54 | NUR ---
pt arrived from home for SOB/dizziness. pt states she woke up with morning with it. IV started, labs sent, pt medicated per eMAR. pt on continuous cardiac/O2 monitor. EKG performed. 0955: pt taken to CT
--- NOTE | 2020-08-22 10:15 | Diagnostic Imaging Report ---
EXAM: CT Head Without Intravenous Contrast CLINICAL HISTORY: DIZZY TECHNIQUE: Axial computed tomography images of the head/brain without intravenous contrast. CTDI is 53.4 mGy and DLP is 1072.2 mGy-cm. One or more of the following dose reduction techniques were used: automated exposure control, adjustment of the mA and/or kV according to patient size, use of iterative reconstruction technique. COMPARISON: None FINDINGS: Brain: No acute infarct or hemorrhage. No extra-axial fluid collection. No mass effect or midline shift. Ventricles and sulci: Normal. No ventriculomegaly or intraventricular hemorrhage. Bones: Normal. No bony lesion or acute fracture. Subcutaneous tissues: Normal. Sinuses: Small polyps versus mucous retention cysts in the maxillary sinuses. Mild mucosal thickening in the right frontal sinus. Mastoid air cells: Normal. Orbits: Grossly unremarkable. IMPRESSION: No acute intracranial abnormality.
--- NOTE | 2020-08-22 10:16 | Diagnostic Imaging Report ---
EXAM: XR Chest, 1 View CLINICAL HISTORY: SOB TECHNIQUE: Frontal view of the chest. COMPARISON: Chest radiograph on 07/16/2020 FINDINGS: Hardware: None. Lungs/pleura: Normal. No focal consolidation. No pleural effusion or pneumothorax. Heart/mediastinum: Normal. No cardiomegaly. Soft tissues: Unremarkable. Bones: No acute fracture. Upper abdomen: Normal. IMPRESSION: No acute disease identified.
[2020-08-22 10:20] LABS: BASOPHILS % (AUTO) 0.6 % (0.0-2.0); EOSINOPHILS % (AUTO) 2.2 % (0.0-3.0); HEMOGLOBIN 14.4 G/DL (12.0-16.0); LYMPHOCYTES % (AUTO) 22.9 % (20.0-45.0); MEAN CORPUSCULAR VOLUME 90 FL (80-99); MONOCYTES % (AUTO) 6.5 % (1.0-10.0); NEUTROPHILS % (AUTO) 67.8 % (45.0-75.0); PLATELET COUNT 241 K/UL (150-450); RED BLOOD COUNT 4.91 M/UL (4.20-5.40); RED CELL DISTRIBUTION WIDTH 13.3 % (11.6-14.8); WHITE BLOOD COUNT 6.9 K/UL (4.8-10.8)
[2020-08-22 10:31] LABS: INR 0.9 (0.9-1.1)
[2020-08-22 10:36] LABS: ANION GAP 10 mmol/L (5-15); BLOOD UREA NITROGEN 13 mg/dL (7-18); CALCIUM 9.3 MG/DL (8.5-10.1); CARBON DIOXIDE 28 MMOL/L (21-32); CHLORIDE 106 MMOL/L (98-107); CREATININE 0.7 MG/DL (0.55-1.30); POTASSIUM 3.9 MMOL/L (3.5-5.1); SODIUM 144 MMOL/L (136-145)
[2020-08-22 10:48] LABS: ALANINE AMINOTRANSFERASE 46 U/L (12-78); ALBUMIN 4.2 G/DL (3.4-5.0); ALKALINE PHOSPHATASE 133 U/L (46-116); ASPARTATE AMINO TRANSFERASE 19 U/L (15-37); BILIRUBIN,TOTAL 0.4 MG/DL (0.2-1.0)
[2020-08-22 10:51] VITALS: BP 121/71
--- NOTE | 2020-08-22 11:00 | NUR ---
patient is to be transferd per insurance for admission and evaluation
[2020-08-22 11:22] VITALS: BP 124/70
[2020-08-22 12:10] VITALS: BP 143/86
[2020-08-22 14:01] VITALS: BP 141/88
--- NOTE | 2020-08-22 14:02 | NUR ---
report given [facility]
--- NOTE | 2020-08-22 14:03 | NUR ---
1030:pt resting in bed. on monitor. VSS. will continue to monitor. no signs of distress noted. 1230: pt resting in bed. on monitor. VSS. will continue to monitor. no signs of distress noted. 1330: pt resting in bed. cardiac leads repositioned. pt denies pain. VSS. will continue to monitor. 1400: transport team here to transfer pt for further workup.
== END 2020-08-22 14:09 | disposition short-term general hospital (02) ==
LOC: EMR 09:28
DX: I24.9 Acute ischemic heart disease, unspecified (principal); R06.00 Dyspnea, unspecified; I25.2 Old myocardial infarction; Z88.6 Allergy status to analgesic agent; Z95.5 Presence of coronary angioplasty implant and graft; I10 Essential (primary) hypertension; E78.5 Hyperlipidemia, unspecified; Z79.02 Long term (current) use of antithrombotics/antiplatelets; Z79.82 Long term (current) use of aspirin
CPT/HCPCS: 36415; 70450; 71045; 80053; 83735; 83880; 84439; 84443; 84484; 85025; 85379; 85610; 85730; 93005; 96360; J7030; Z7502; 99285